=== PATIENT | female | born 1980 | race Caucasian/White ===

== ENCOUNTER 2017-11-23 17:40 | Emergency (ER) | payer OTHER | END 2017-11-23 18:18 | disposition home or self-care (01) | LOC: SCSER 17:40 | DX: S16.1XXA Strain of muscle, fascia and tendon at neck level, initial encounter (principal); I10 Essential (primary) hypertension; F41.9 Anxiety disorder, unspecified; V43.62XA Car passenger injured in collision with other type car in traffic accident, initial encounter | CPT/HCPCS: 99283 ==

== ENCOUNTER 2020-06-18 09:29 | Outpatient (CLI) | payer OTHER ==
--- NOTE | 2020-06-18 10:28 | RAD ---
XR Elbow Lt 4 View STANDARD HISTORY: Left elbow pain FINDINGS: No fracture or dislocation is identified.
== END 2020-06-18 09:30 | disposition home or self-care (01) ==
LOC: SCSRAD 09:29
PROVIDERS: ATTEND Physician Assistant
DX: M25.522 Pain in left elbow (principal)

== ENCOUNTER 2020-11-06 07:59 | Observation (INO) | payer OTHER ==
[2020-11-06] MEDS ORDERED: Bacitracin Zinc Ointment 30 gm TUBE ONE (09:31)
[2020-11-06] MEDS ORDERED: Sodium Chloride 0.9% 10 ML ONE (09:31)
[2020-11-06] MEDS ORDERED: HYDROmorphone 0.5 MG/0.5 ML SYRINGE ONE (10:19)
[2020-11-06] MEDS ORDERED: Fentanyl 100 MCG/2 ML VIAL ONE ×4 (10:19→15:25)
[2020-11-06] MEDS ORDERED: Midazolam HCl 2 mg/2 ml Vial ONE (10:19)
[2020-11-06] MEDS ORDERED: Lidocaine 2% Jelly 5 ML TUBE ONE (10:54)
[2020-11-06] MEDS ORDERED: Bupivacaine PF 0.5% 30 ML VIAL ONE (11:25)
[2020-11-06] MEDS ORDERED: SUGAMMADEX SODIUM 500 MG/5 ML VIAL ONE (11:35)
[2020-11-06] MEDS ORDERED: Betamet Acet/Betamet Na Ph 30 MG/5 ML VIAL ONE (11:50)
[2020-11-06] MEDS ORDERED: Ondansetron PF 4 MG/2 ML Vial ONE (13:16)
[2020-11-06] MEDS ORDERED: Lidocaine 1% PF 5 ML VIAL ONE (13:16)
[2020-11-06] MEDS ORDERED: Glycopyrrolate 0.2 MG/ML 5 ML SYRINGE ONE (13:16)
[2020-11-06] MEDS ORDERED: Rocuronium Bromide 10 MG/ML (10ML VIAL) ONE (13:16)
[2020-11-06] MEDS ORDERED: Ketorolac Tromethamine 30 MG/ML VIAL ONE ×2 (13:16→16:05)
[2020-11-06] MEDS ORDERED: Dexamethasone 20 MG/5 ML VIAL ONE (13:16)
[2020-11-06] MEDS ORDERED: PROPOFOL 200 MG/20 ML VIAL ONE (13:16)
[2020-11-06] MEDS ORDERED: Promethazine HCl 25 MG/ML VIAL ONE (14:58)
[2020-11-06] MEDS ORDERED: traMADol HCl 50 MG TAB PO PRN (15:41)
[2020-11-06] MEDS ORDERED: Ondansetron PF 4 MG/2 ML Vial SLOW IVP PRN (15:41)
[2020-11-06] MEDS ORDERED: Promethazine HCl 25 MG/ML VIAL IM PRN (15:41)
[2020-11-06] MEDS ORDERED: Morphine 4 MG/ML VIAL SLOW IVP PRN (15:41)
[2020-11-06] MEDS ORDERED: Bisacodyl 10 MG SUPP PR PRN (15:41)
[2020-11-06] MEDS ORDERED: Pharmacy to Dose : VANC/ABX'S IVPB PRN (15:45)
[2020-11-06] MEDS ORDERED: TETANUS AND DIPHTHERIA TOX/PF 0.5 ML DISP.SYRIN IM SCH (15:45)
[2020-11-06] MEDS ORDERED: Meperidine HCl/PF 25 MG/ML VIAL IM PRN (15:47)
[2020-11-06] MEDS ORDERED: HYDROcodone/Acetaminophen 5/325 mg Tablet ONE (16:47)
[2020-11-06 18:17] VITALS: BMI 51.2
[2020-11-06] MEDS: Sodium Chloride 0.9% 1,000 ML IV SCH (18:21)
[2020-11-06] MEDS ORDERED: Pregabalin 75 MG CAP PO SCH (19:45)
[2020-11-06] MEDS: Aspirin 81 mg Enteric Coated Tablet PO SCH (20:09)
[2020-11-06] MEDS: Ascorbic Acid 500 mg Chewable Tablet PO SCH (20:10)
[2020-11-06] MEDS: pyridOXINE 50 MG (B6) TAB PO SCH (20:10)
[2020-11-06] MEDS: HYDROcodone/Acetaminophen 5/325 mg Tablet PO PRN (20:31)
[2020-11-06] MEDS: Ketorolac Tromethamine 30 MG/ML VIAL IVP PRN (20:33)
[2020-11-06] MEDS ORDERED: Vancomycin 1 GM in Premix Bag 1 BAG IVPB SCH (21:00)
[2020-11-06] MEDS: VANCOMYCIN 2 GRAM/400 ML BAG 2 GM in Premix Bag 1 BAG IVPB SCH (22:18)
[2020-11-06] MEDS: Sodium Chloride 0.9% 100 ML IV SCH (22:35)
[2020-11-07] MEDS: Sodium Chloride 0.9% 1,000 ML IV SCH (01:10)
[2020-11-07] MEDS: HYDROcodone/Acetaminophen 5/325 mg Tablet PO PRN ×4 (01:47→12:23)
[2020-11-07] MEDS: Ketorolac Tromethamine 30 MG/ML VIAL IVP PRN ×2 (05:01→10:37)
[2020-11-07] MEDS ORDERED: Pregabalin 75 MG CAP PO SCH (08:00)
[2020-11-07 08:08] VITALS: TEMP 97.8
[2020-11-07] MEDS: Aspirin 81 mg Enteric Coated Tablet PO SCH (08:32)
[2020-11-07] MEDS: pyridOXINE 50 MG (B6) TAB PO SCH (08:33)
[2020-11-07] MEDS: Ascorbic Acid 500 mg Chewable Tablet PO SCH (08:34)
[2020-11-07] MEDS: VANCOMYCIN 2 GRAM/400 ML BAG 2 GM in Premix Bag 1 BAG IVPB SCH (10:05)
[2020-11-07 11:57] VITALS: BP 122/68
--- NOTE | 2020-11-08 17:23 | OP ---
DATE OF PROCEDURE: 11/06/2020 MEDICAL LAB TECHNOLOGIST: Medical student, Thanh Carranza, MS-3 PREOPERATIVE DIAGNOSES: 1. Left cubital tunnel. 2. Left carpal tunnel. 3. Left pronator compression. FINDINGS: 1. At the carpal tunnel, median nerve compressed over 1 cm area with stippling and erythema. No hourglass formation. 2. At the cubital tunnel, she had compression at four sites. a. The proximal mid forearm fascia. b. Intermuscular septum. c. Very tight compression almost 50% flattening at the cubital tunnel itself. d. and then finally at the median nerve at the elbow/pronator, she had compression of both the deep and superficial pronator head, the superficialis fascia and defect and the leash of vessels as well as lacertus. PROCEDURES PERFORMED: 1. Carpal tunnel release, left. 2. Cubital tunnel release with ulnar nerve transposition subcutaneous. 3. Pronator release/median nerve neuroplasty at the forearm and elbow. TOURNIQUET TIME: First tourniquet 48 minutes. Then, there was a 35 minute in break between and the next tourniquet was 68 minutes. INJECTABLE: Yes. The patient had a total of 50 mL of 0.5% Marcaine with 20 given at the cubital tunnel, 20 at the pronator site and 10 at the carpal tunnel incision. DESCRIPTION OF PROCEDURE: After successful general endotracheal anesthesia, the limb was prepped and draped. The patient had the wound irrigated. The patient had the limb prepped and draped with the shoulder drape and a sterile tourniquet applied through outlined incision using the standard midline approach to the posterior elbow for cubital tunnel incision making a zigzag off the olecranon tip, otherwise straight midline, a modified zigzag incision over the proximal forearm beginning just medial to the distal edge antecubital fossa and coursing in-line with the flexor carpi radialis, palmaris longus interval and then, a carpal tunnel incision in-line with the ring finger medial lateral as far distal as Sahni's cardinal line and 5 mm short of the volar wrist flexion crease. Incision was carried through skin and subcutaneous tissue until the limb was exsanguinated. We then first approached the pronator site. We had the assistance today of medical student 3, Thanh Carranza. With the help of assistance and the research technician, we outlined the interval, carried through skin and subcutaneous tissue at the antecubital fossa. We dissected under the subcutaneous nerves, split the fascia. We identified the interval between the radial artery and radial vessels and superficial radial nerve and deep to that found the superficial head of the pronator. We did a L lengthening, which once completed, we had an audible expansion of almost 2 cm to take some pressure off the nerve. We found the nerve very high in the antecubital fossa, where there was a very thick lacertus fascia and so we released this. We then followed the nerve first protecting the anterior osseous nerve branch. Leash of vessel was clipped and then electrocautery was used. Then, we found the superficialis arch and the deep pronator, which we released in-line with the nerve protected the nerve. We then had a complete release. There was constriction of the nerve by the pronator and superficialis Donaldson approximately 30%. 3 mL of Celestone was placed here. We placed a moist sponge in this wound and then proceeded with the carpal tunnel release. We made a midline incision along the outlined area as listed above, carried through skin and subcutaneous tissue to reach the transverse carpal ligament. We entered the transverse carpal ligament through the center of the palmaris longus insertion. We carried this through until we saw evidence of underlying tendons. From here, direct visualization at the mid point of transverse carpal ligament, we released it from the midpoint distally, protected all nerve branches. We did the same under direct visualization with combination of [place] blade, tenotomy scissors from the midpoint proximally. We then released the tourniquet, obtained hemostasis. We placed 2 mL of Celestone along the median nerve, where we saw compression over 0.5 cm area with stippling, but no true hourglass formation. We closed the carpal tunnel incision with interrupted 4-0 nylon mattress pattern. We closed the pronator incision, released , after obtaining full hemostasis and protected the subcutaneous nerves with a running 3-0 Monocryl and then 3-0 nylon interrupted mattress pattern. We then reinflated the tourniquet after 32 minute hiatus, placed the arm in maximum in shoulder elevation and elbow flexion and with the help of the operating room team, maintained this position. Made incision through skin and subcutaneous tissue, dissected down as the patient had a BMI of 52 through copious layers of fat until we found the ulnar nerve high in its proximal incision. We then freed it from the lateral trapezium and we saw initially very tight fascia, which we released under direct visualization in the mid arm. We were then able to release along the entire triceps till we reached the lateral edge of the distal intermuscular septum and here the cubital tunnel became very tight compressing the nerve almost 50%. We then released this under direct visualization, saw approximately 1/3rd circumferential compression under the two heads of the flexors. These were released as well. We followed the fascia out well underneath the distal wound and then began to dissect slowly with blunt right angle clamp to separate the ulnar nerve completely. Once we had done this to pull, it could be transposed 2 cm proximally, we created a sleeve of her copious lipomatous tissue, almost 8 mm thick and then, this would be used to hold the nerve in a small subcutaneous pouch well away from the previous cubital tunnel fossa. We then freed the intermuscular septum and released an area 8 cm long before transposing the nerve because of possible compression. Celestone 3 mL was placed in the ulnar nerve before we closed the pouch. We transposed the nerve, sutured the pouch loosely using interrupted #1 Ethibond OS-4 needle and there was no defect compression or excessive migration and the previous cubital tunnel was not empty. I released the tourniquet. We obtained hemostasis. We closed the wound after obtaining hemostasis with running 3-0 Monocryl subcutaneous and 3-0 nylon for the skin in interrupted mattress pattern. The patient left the operating room in a bulky dressing. The patient left the operating room without evidence of anesthetic or operative complication with pink digits in a splint. In the recovery room, pain was not well controlled because she did not have a block and we had to admit her. Job ID: [id number]
== END 2020-11-07 14:50 | disposition home or self-care (01) ==
LOC: SDC 07:59 → SURG B 15:41
PROVIDERS: ADMIT Orthopaedic Surgery Hand Surgery; ATTEND Orthopaedic Surgery Hand Surgery
PROC: 01N50ZZ Release Median Nerve, Open Approach (ICD-10-PCS; principal; 2020-11-06)
PROC: 01N40ZZ Release Ulnar Nerve, Open Approach (ICD-10-PCS; 2020-11-06)
PROC: 01N50ZZ Release Median Nerve, Open Approach (ICD-10-PCS; 2020-11-06)
DX: G56.12 Other lesions of median nerve, left upper limb (principal); G56.02 Carpal tunnel syndrome, left upper limb; G56.22 Lesion of ulnar nerve, left upper limb; M77.12 Lateral epicondylitis, left elbow; L40.50 Arthropathic psoriasis, unspecified; I10 Essential (primary) hypertension; E78.5 Hyperlipidemia, unspecified; E66.01 Morbid (severe) obesity due to excess calories; Z68.43 Body mass index [BMI] 50.0-59.9, adult; Z79.899 Other long term (current) drug therapy; Z88.8 Allergy status to other drugs, medicaments and biological substances; Z91.018 Allergy to other foods
CPT/HCPCS: 96365; 96366; 96375; G0378; J0690; J0702; J1100; J1170; J1885; J2250; J2270; J2405; J2550; J2704; J3010; J3370; J3490; S0020

== ENCOUNTER 2023-06-27 08:31 | Outpatient (CLI) | payer BC | END 2023-06-27 08:32 | disposition home or self-care (01) | LOC: ULT 08:31 | PROVIDERS: ATTEND Family Medicine | DX: E21.3 Hyperparathyroidism, unspecified (principal); E04.1 Nontoxic single thyroid nodule | CPT/HCPCS: 76536 ==

== ENCOUNTER 2023-07-06 08:22 | Outpatient (CLI) | payer BC | END 2023-07-06 08:23 | disposition home or self-care (01) | LOC: NM 08:22 | PROVIDERS: ATTEND Family Medicine | DX: E21.3 Hyperparathyroidism, unspecified (principal); R94.8 Abnormal results of function studies of other organs and systems | CPT/HCPCS: 78072; A9500 ==

== ENCOUNTER 2024-10-14 09:51 | Outpatient (CLI) | payer BC | END 2024-10-14 09:52 | disposition home or self-care (01) | LOC: ULT 09:51 | PROVIDERS: ATTEND Family Medicine | DX: E04.2 Nontoxic multinodular goiter (principal) | CPT/HCPCS: 76536 ==